=== PATIENT | male | born 1980 | race Asian ===

== ENCOUNTER 2021-03-05 12:09 | Emergency (ER) | payer OTHER ==
[~2021-03-05] VITALS: Ht 177.8 cm; Wt 89.2 kg
[2021-03-05 12:10] VITALS: BP 139/73
[2021-03-05] MEDS ORDERED: IBUP200C25 PO (12:26)
[2021-03-05] MEDS ORDERED: IBUP80TA PO (14:03)
[2021-03-05] MEDS ORDERED: CYCL5TAB PO (14:03)
== END 2021-03-05 14:10 | disposition home or self-care (01) ==
LOC: M ED 12:09
DX: M54.5 Low back pain (principal); X50.0XXA Overexertion from strenuous movement or load, initial encounter; Y92.9 Unspecified place or not applicable; Y93.B9 Activity, other involving muscle strengthening exercises; Y99.9 Unspecified external cause status